=== PATIENT | female | born 1985 | race Caucasian/White ===

== ENCOUNTER 2018-09-28 14:32 | Emergency (ER) | payer MEDICAID ==
[~2018-09-28] VITALS: Ht 165.1 cm; Wt 82.2 kg
[2018-09-28 15:29] LABS: BASOPHILS % (AUTO) 0.3 % (0-1); EOSINOPHILS # (AUTO) 0.2 X10'3 (0-0.9); EOSINOPHILS % (AUTO) 2.3 % (0-6); HEMOGLOBIN 12.4 g/dl (12.0-16.0); LYMPHOCYTES % (AUTO) 29.2 % (21-51); MEAN CORPUSCULAR HEMOGLOBIN 31.2 PG (27.0-31.0); MEAN CORPUSCULAR HGB CONC 33.7 % (33.0-36.5); MEAN CORPUSCULAR VOLUME 92.5 FL (78-98); MEAN PLATELET VOLUME 7.6 FL (7.4-10.4); MONOCYTES # (AUTO) 0.5 X10'3 (0-0.9); MONOCYTES % (AUTO) 7.3 % (2-12); NEUTROPHILS # (AUTO) 4.1 X10'3 (1.8-7.7); NEUTROPHILS % (AUTO) 60.9 % (42-75); PLATELET COUNT 232 X10'3 (140-440); RED CELL DISTRIBUTION WIDTH 12.7 % (11.5-14.5); WHITE BLOOD COUNT 6.8 X10'3 (4.5-11.0)
[2018-09-28 15:34] LABS: URINE HCG NEGATIVE (NEG)
[2018-09-28 15:40] LABS: ALANINE AMINOTRANSFERASE 38 U/L (12-78); ALBUMIN 3.6 G/DL (3.4-5.0); ALBUMIN/GLOBULIN RATIO 1.1 (1.1-1.5); ALKALINE PHOSPHATASE 73 IU/L (46-116); ANION GAP 7 (8-16); ASPARTATE AMINO TRANSFERASE 26 U/L (10-37); BILIRUBIN,TOTAL 0.7 MG/DL (0.1-1.0); BLOOD UREA NITROGEN 10 MG/DL (7-18); BUN/CREATININE RATIO 12.5 (6.6-38.0); CALCIUM 8.6 MG/DL (8.5-10.1); CHLORIDE 105 MMOL/L (99-107); ETHANOL < 0.010 GM/DL (0.0-0.010); GLUCOSE 88 MG/DL (70-104); POTASSIUM 4.4 MMOL/L (3.5-5.1); SODIUM 141 MMOL/L (135-145); TOTAL CARBON DIOXIDE 29.5 MMOL/L (24-32); TOTAL PROTEIN 6.8 G/DL (6.4-8.2); eGFR 84 ML/MIN
[2018-09-28 15:46] LABS: URINE AMPHETAMINE SCREEN POSITIVE (Neg); URINE BARBITUATE SCREEN NEGATIVE (Neg); URINE BENZODIAZEPINES SCREEN NEGATIVE (Neg); URINE CANNABINOID SCREEN POSITIVE (Neg); URINE COCAINE SCREEN NEGATIVE (Neg); URINE METHADONE SCREEN NEGATIVE (Neg); URINE OPIATE SCREEN NEGATIVE (Neg); URINE PHENCYCLIDINE SCREEN NEGATIVE (Neg)
[2018-09-28] MEDS ORDERED: benzocaine/menthol oral lozeng 1 EACH BOX MM PRN (16:25)
[2018-09-29] MEDS ORDERED: SERT50TA PO (02:39)
[2018-09-29] MEDS ORDERED: RISP2TAB97 PO (02:39)
[2018-09-29] MEDS: sertraline 50mg tablet PO SCH (08:59)
[2018-09-29 20:25] LABS: CLARITY,URINE CLEAR (Clear); COLOR,URINE STRAW (Yellow); GLUCOSE, URINE NEGATIVE (Neg); KETONES,URINE NEGATIVE (Neg); LEUKOCYTE ESTERASE ,URINE NEGATIVE (Neg); NITRITES, URINE NEGATIVE (Neg); OCCULT BLOOD,URINE NEGATIVE (Neg); PROTEIN,URINE NEGATIVE (Neg); UROBILINOGEN,URINE 0.2 E.U/dL (0.2-1.0)
[2018-09-29 20:33] LABS: UA COLLECTION TYPE NON-SPECIFIED
[2018-09-29] MEDS ORDERED: risperiDONE 2mg tablet PO SCH (21:00)
[2018-09-30 05:52] VITALS: BP 92/58
[2018-09-30] MEDS: sertraline 50mg tablet PO SCH (08:24)
== END 2018-09-30 11:40 | disposition home or self-care (01) ==
LOC: ER 14:34
DX: R45.851 Suicidal ideations (principal); F15.90 Other stimulant use, unspecified, uncomplicated; Z59.0 Homelessness; Z56.0 Unemployment, unspecified; Z79.899 Other long term (current) drug therapy
CPT/HCPCS: 36415; 80053; 80305; 80320; 81003; 81025; 84443; 85025; 99284; 99285

== ENCOUNTER 2018-10-01 11:57 | Emergency (ER) | payer MEDICAID ==
[~2018-10-01] VITALS: Ht 165.1 cm; Wt 81.2 kg
[~2018-10-01 11:57] MED LIST: RISP2TAB97 PO; SERT50TA PO
[2018-10-01 12:19] VITALS: BP 113/73
== END 2018-10-01 12:49 | disposition home or self-care (01) ==
LOC: ER 11:57
DX: F10.20 Alcohol dependence, uncomplicated (principal); F15.10 Other stimulant abuse, uncomplicated; Z87.891 Personal history of nicotine dependence; Z59.0 Homelessness; Z56.0 Unemployment, unspecified; Z79.899 Other long term (current) drug therapy; Y90.9 Presence of alcohol in blood, level not specified
CPT/HCPCS: 99281

== ENCOUNTER 2018-10-17 08:38 | Emergency (ER) | payer MEDICAID ==
[~2018-10-17] VITALS: Ht 170.2 cm; Wt 82.7 kg
[~2018-10-17 08:38] MED LIST changes: +PENI500T2 PO
[2018-10-17] MEDS ORDERED: normal saline 1000ML IV soln IVB ONE (08:50)
[2018-10-17 09:25] LABS: BASOPHILS % (AUTO) 0 % (0-1); EOSINOPHILS % (AUTO) 0.2 % (0-6); HEMOGLOBIN 13.8 g/dl (12.0-16.0); LYMPHOCYTES # (AUTO) 0.3 X10'3 (1.1-4.8); LYMPHOCYTES % (AUTO) 2.8 % (21-51); MEAN CORPUSCULAR HEMOGLOBIN 30.9 PG (27.0-31.0); MEAN CORPUSCULAR HGB CONC 33.8 % (33.0-36.5); MEAN CORPUSCULAR VOLUME 91.4 FL (78-98); MEAN PLATELET VOLUME 7.4 FL (7.4-10.4); MONOCYTES # (AUTO) 0.3 X10'3 (0-0.9); MONOCYTES % (AUTO) 2.8 % (2-12); NEUTROPHILS # (AUTO) 8.5 X10'3 (1.8-7.7); NEUTROPHILS % (AUTO) 94.2 % (42-75); PLATELET COUNT 218 X10'3 (140-440); RED BLOOD COUNT 4.48 X10'6 (4.20-5.60); RED CELL DISTRIBUTION WIDTH 13.4 % (11.5-14.5)
[2018-10-17 09:33] LABS: URINE HCG NEGATIVE (NEG)
[2018-10-17 09:43] LABS: ALANINE AMINOTRANSFERASE 28 U/L (12-78); ALBUMIN/GLOBULIN RATIO 1.3 (1.1-1.5); ALKALINE PHOSPHATASE 80 IU/L (46-116); ANION GAP 11 (8-16); ASPARTATE AMINO TRANSFERASE 17 U/L (10-37); BILIRUBIN,TOTAL 1.5 MG/DL (0.1-1.0); BLOOD UREA NITROGEN 14 MG/DL (7-18); BUN/CREATININE RATIO 15.4 (6.6-38.0); CHLORIDE 102 MMOL/L (99-107); CREATININE 0.91 MG/DL (0.40-0.90); GLUCOSE 113 MG/DL (70-104); SODIUM 136 MMOL/L (135-145); TOTAL CARBON DIOXIDE 23.4 MMOL/L (24-32); TOTAL PROTEIN 7.2 G/DL (6.4-8.2); eGFR 72 ML/MIN
[2018-10-17 09:50] LABS: ETHANOL < 0.010 GM/DL (0.0-0.010)
[2018-10-17 10:06] LABS: C DIFF ANTIGEN NEGATIVE (NEGATIVE); C DIFF SPECIMEN=DIARRHEA? ACCEPTABLE; C DIFFICILE TOXINS A&B NEGATIVE (Neg)
[2018-10-17] MEDS ORDERED: ONDA4TAB6 PO (10:12)
[2018-10-17] MEDS ORDERED: ondansetron 4mg rapidly disintigrating tab PO ONE ×2 (10:25→18:00)
[2018-10-17] MEDS ORDERED: loperamide 2mg capsule PO ONE (10:25)
[2018-10-17 15:35] LABS: CLARITY,URINE CLEAR (Clear); COLOR,URINE STRAW (Yellow); GLUCOSE, URINE NEGATIVE (Neg); KETONES,URINE NEGATIVE (Neg); LEUKOCYTE ESTERASE ,URINE NEGATIVE (Neg); NITRITES, URINE NEGATIVE (Neg); OCCULT BLOOD,URINE TRACE-INTACT (Neg); PROTEIN,URINE NEGATIVE (Neg); UA COLLECTION TYPE VOIDED; UROBILINOGEN,URINE 0.2 E.U/dL (0.2-1.0)
[2018-10-17 15:39] LABS: URINE AMPHETAMINE SCREEN NEGATIVE (Neg); URINE BARBITUATE SCREEN NEGATIVE (Neg); URINE BENZODIAZEPINES SCREEN NEGATIVE (Neg); URINE CANNABINOID SCREEN NEGATIVE (Neg); URINE COCAINE SCREEN NEGATIVE (Neg); URINE METHADONE SCREEN NEGATIVE (Neg); URINE OPIATE SCREEN NEGATIVE (Neg); URINE PHENCYCLIDINE SCREEN NEGATIVE (Neg)
[2018-10-17 15:42] LABS: BACTERIA,URINE FEW /HPF (Neg); RBC,URINE 0-2 /HPF (0-2); SQUAMOUS EPITHELIAL CELL,UR FEW /LPF (FEW); TRICHOMONAS,URINE FEW /HPF (NEGATIVE); WBC,URINE 0-4 /HPF (0-4)
[2018-10-17] MEDS ORDERED: metroNIDAZOLE 500mg tablet PO ONE (18:00)
[2018-10-17] MEDS ORDERED: acetaminophen 325mg tablet PO ONE (18:10)
[2018-10-17 19:19] LABS: ALBUMIN 3.5 G/DL (3.4-5.0); ANION GAP 11 (8-16); BLOOD UREA NITROGEN 8 MG/DL (7-18); BUN/CREATININE RATIO 11.1 (6.6-38.0); CALCIUM 8.4 MG/DL (8.5-10.1); CHLORIDE 99 MMOL/L (99-107); CREATININE 0.72 MG/DL (0.40-0.90); GLUCOSE 108 MG/DL (70-104); POTASSIUM 3.4 MMOL/L (3.5-5.1); SODIUM 132 MMOL/L (135-145); TOTAL CARBON DIOXIDE 21.7 MMOL/L (24-32); eGFR > 90 ML/MIN
[2018-10-17 19:36] LABS: HEMATOCRIT 37.3 % (35.0-45.0); HEMOGLOBIN 12.7 g/dl (12.0-16.0); MEAN CORPUSCULAR HEMOGLOBIN 31.2 PG (27.0-31.0); MEAN CORPUSCULAR VOLUME 91.6 FL (78-98); PLATELET COUNT 181 X10'3 (140-440); RED BLOOD COUNT 4.08 X10'6 (4.20-5.60); RED CELL DISTRIBUTION WIDTH 13.3 % (11.5-14.5); WHITE BLOOD COUNT 7.2 X10'3 (4.5-11.0)
[2018-10-17 19:37] LABS: BASOPHILS % (AUTO) 0 % (0-1); EOSINOPHILS % (AUTO) 0.2 % (0-6); LYMPHOCYTES # (AUTO) 0.5 X10'3 (1.1-4.8); LYMPHOCYTES % (AUTO) 6.9 % (21-51); MEAN PLATELET VOLUME 8.1 FL (7.4-10.4); MONOCYTES # (AUTO) 0.5 X10'3 (0-0.9); MONOCYTES % (AUTO) 6.5 % (2-12); NEUTROPHILS # (AUTO) 6.3 X10'3 (1.8-7.7); NEUTROPHILS % (AUTO) 86.4 % (42-75)
[2018-10-17] MEDS ORDERED: risperiDONE 2mg tablet PO SCH (21:00)
[2018-10-17 23:17] LABS: PLATELET ESTIMATE NORMAL; TOTAL CELLS COUNTED 100
[2018-10-18] MEDS ORDERED: sertraline 50mg tablet PO SCH (08:00)
[2018-10-18] MEDS ORDERED: acetaminophen 325mg tablet PO PRN (12:30)
[2018-10-18 16:59] VITALS: BP 101/62
== END 2018-10-18 20:38 ==
LOC: ER 08:39
DX: R19.7 Diarrhea, unspecified (principal); R10.30 Lower abdominal pain, unspecified; R11.2 Nausea with vomiting, unspecified; R45.851 Suicidal ideations; F32.9 Major depressive disorder, single episode, unspecified; F20.9 Schizophrenia, unspecified; F15.90 Other stimulant use, unspecified, uncomplicated; Z79.899 Other long term (current) drug therapy; Z59.0 Homelessness; Z56.0 Unemployment, unspecified
CPT/HCPCS: 36415; 80048; 80053; 80305; 80320; 81001; 81025; 84443; 85025; 87324; 87449; 96360; 99285; J7030; J3490